=== PATIENT | female | born 1995 | race Caucasian/White ===

== ENCOUNTER 2017-01-26 20:46 | Emergency (ER) | payer BC, MEDICAID ==
--- NOTE | ~2017-01-26 | ER ---
PATIENT'S NAME: BRYANT CARRANZA [facility] AGE: 21 Y [address] ROOM: [place], [place] [address] LOCATION: [facility] ADMIT DATE: 01/26/2017 ER/Outpatient Report DISCHARGE DATE: 01/27/2017 FAMILY PHYSICIAN: PHYSICIAN, JACINTO ATTENDING PHYSICIAN: Cesia Banda Time of Arrival: 2046 hours. Time of Evaluation: 2100 hours. CHIEF COMPLAINT: Chest pain. HISTORY OF PRESENT ILLNESS: This is a 21-year-old female, who presents to the ER, who states she is having some chest discomfort that started yesterday. The patient states it is located all over the front of her chest, left greater than right. She describes it as a pressure-type feeling. She states it makes her feel short of breath. She states she has also been feeling dizzy with this as well. She states that she was recently started on 2 medications, one for depression and one for her high blood pressure a few days ago, so she is wondering if these new medications are making her feel so bad. She has had no recent fever. No cough. No chills. No sore throat. She states she was started on these medications. They did do some blood work and told her that she had an infection somewhere. She had an elevated white count, but they did not know where. The patient denies any other problems at this time. ALLERGIES: PENICILLIN. MEDICATIONS: Please see medication list nurse's notes. PAST MEDICAL HISTORY: Hypertension and depression. PAST SURGERIES: None. SOCIAL HISTORY: Smokes half pack a day. Drinks alcohol occasionally. REVIEW OF SYSTEMS: A 10-point review of systems was completed and was negative with the exception of those discussed in the HPI. PATIENT'S NAME: BRYANT CARRANZA [facility] AGE: 21 Y [address] ROOM: [place], [place] [address] LOCATION: [facility] ADMIT DATE: 01/26/2017 ER/Outpatient Report DISCHARGE DATE: 01/27/2017 FAMILY PHYSICIAN: PHYSICIAN, JACINTO ATTENDING PHYSICIAN: Cesia Banda PHYSICAL EXAMINATION: VITAL SIGNS: Height 5 feet and 2 inches stated, weight 112 kg taken, blood pressure is 153/103, saturations 98% on room air, pulse is 116, respirations 18, and temperature 99.7 degrees tympanically. [place] Coma Score is 15. GENERAL: Alert, obese female, in no acute distress. HEENT: Head: Normocephalic. Eyes: Pupils are equal and reactive to light. She does display moist mucous membranes. LUNGS: Clear to auscultation bilaterally. No wheezes or crackles. Normal respiratory effort. HEART: Tachycardic. Normal rhythm. No lifts, thrills, or murmurs. EXTREMITIES: No clubbing or cyanosis. She has full range of motion of all limbs. ABDOMEN: Soft. It is obese. She is nontender. She has good bowel sounds throughout. LABORATORY DATA: CBC: White count is 18.9, hemoglobin is 15.9, platelets 471, and ANC is 9.6. INR is 1.0. CMS: Potassium 3.6, glucose 104, BUN 15, creatinine 0.7, and magnesium is 1.9. CPK is 125, CK-MB is 1.0, and troponin I is less than 0.040. D-dimer was negative at 0.30, hCG is less than 1.0, TSH is 3.290. A second set of cardiac enzymes: CPK is 129, CK-MB is 0.9, and troponin I is less than 0.040. EKG shows sinus tachycardia. Chest x-ray was negative for any infiltrate. IMPRESSION: Chest discomfort. ASSESSMENT AND PLAN: I did discuss the patient's care with Dr. Banda. We did give the patient 800 mg of ibuprofen p.o. here in the emergency room. She did rest comfortably her entire stay. The patient states that she is feeling better. I advised her if she wants to stop one of her medications, I would maybe suggest stopping the depression medication for now to see how she feels. I would like her to do close followup with her primary care physician in 1 to 3 days for followup care and maybe make some medication adjustments for her so she feels better. The patient understands and agrees with care. JEANNIE THOMPSON PA-C FOR MD RUDY GARCIA/logan PATIENT'S NAME: BRYANT CARRANZA [facility] AGE: 21 Y [address] ROOM: [place] [id number] LOCATION: [facility] ADMIT DATE: 01/26/2017 ER/Outpatient Report DISCHARGE DATE: 01/27/2017 FAMILY PHYSICIAN: JACINTO COTE ATTENDING PHYSICIAN: Cesia Banda /[id number] d: 01/27/17 0329 t: 02/21/17 182, OUTPATIENT REPORT
[~2017-01-26 20:46] MED LIST: ACETAMINOPHEN325 MG PO; DERMOPLAST SPRA56 GM TOP; FEOSOL325 MG PO; MOTRIN800 MG PO; PERCOCET 5-3251 EACH PO; PRENATAL 1+1)(P1 TAB PO; TUCKS1 EACH TOP
[2017-01-26 21:31] LABS: HEMATOCRIT 46.7 % (33.0-46.0); HEMOGLOBIN 15.9 g/dL (11.0-15.0); MCH 29.4 pg (27.0-34.0); MCV 86.3 fl (83.0-98.0); MPV 9.4 fl (9.4-12.4); PLATELET COUNT 471 K/uL (150-450); RDW-CV 12.9 % (11.9-14.6)
[2017-01-26 21:32] LABS: RBC 5.41 M/uL (3.50-5.00); WBC 18.9 K/uL (4.0-11.0)
[2017-01-26 21:39] LABS: PROTIME 10.6 SECONDS (9.6-11.1); PTT 34 SECONDS (25-32)
[2017-01-26 21:52] LABS: POTASSIUM 3.6 mMol/L (3.7-5.1); SODIUM 136 mMol/L (135-145)
[2017-01-26 21:53] LABS: ALBUMIN 3.8 gm/dL (3.5-5.0); ALK PHOS 76 IU/L (33-138); ALT 17 IU/L (12-78); ANION GAP 13.6 (10.0-19.0); AST 11 IU/L (10-40); BLOOD UREA NITROGEN 15 mg/dL (6-24); CALCIUM 9.1 mg/dL (8.5-10.5); CHLORIDE 104 mMol/L (96-110); CO2 22 mMol/L (22-32); CPK 125 IU/L (21-215); CREATININE 0.7 mg/dL (0.5-1.1); ESTIMATED GFR (MDRD EQUATION) > 60; MAGNESIUM 1.9 mg/dL (1.3-2.6); TOTAL BILIRUBIN 0.3 mg/dL (0.0-1.5); TOTAL PROTEIN 8.5 g/dL (6.0-8.4)
[2017-01-26 22:05] LABS: ABSOLUTE NEUTROPHIL CT (ANC) 9.6 K/uL (1.8-7.8); LYMPHOCYTE # 7.4 K/uL (0.8-4.0); LYMPHOCYTE % 39 %; MONOCYTE # 1.1 K/uL (0.0-1.0); SEGMENTED NEUTROPHIL # 9.6 K/uL (1.8-7.8); SEGMENTED NEUTROPHIL % 51 %
[2017-01-26 23:54] LABS: CPK 129 IU/L (21-215)
== END 2017-01-27 00:05 | disposition disaster alternative care site (69) ==
LOC: GMED 20:46
PROVIDERS: Physician Assistant Medical
DX: R07.89 Other chest pain (principal); I10 Essential (primary) hypertension; F32.9 Major depressive disorder, single episode, unspecified; F17.210 Nicotine dependence, cigarettes, uncomplicated; Z88.0 Allergy status to penicillin